=== PATIENT | female | born 1975 | race Caucasian/White ===

== ENCOUNTER 2023-12-11 09:51 | Emergency (ER) | payer OTHER, SELFPAY ==
[2023-12-11] VITALS (7 sets, daily range): BP systolic 00–143; BP diastolic 00–86; PULSE 0–92; RESP 14–20; TEMP -17.7–36.6; O2SAT 88–98; BMI 50.6
--- NOTE | ~2023-12-11 | XR_ITS ---
EXAMINATION: XR CHEST CLINICAL INFORMATION: Dizziness. Edema. COMPARISON: None available. TECHNIQUE: Frontal view of the chest was obtained. FINDINGS: Low lung volumes. Cephalization of the vasculature. Interstitial edema. No pleural effusion. Cardiac silhouette is unchanged. XR/XR chest 1V IMPRESSION: Pulmonary edema.
--- NOTE | 2023-12-11 09:56 | ECG_ITS ---
Test Reason : CHEST PAIN Blood Pressure : / mmHG Vent. Rate : 071 BPM Atrial Rate : 071 BPM P-R Int : 178 ms QRS Dur : 100 ms QT Int : 440 ms P-R-T Axes : 042 038 013 degrees QTc Int : 478 ms Normal sinus rhythm Septal infarct , age undetermined Nonspecific ST abnormality Abnormal ECG No previous ECGs available Referred By: Generic ED Physician Electronically Signed By:ETHAN FERNANDEZ MD
--- NOTE | 2023-12-11 10:12 | ED_ITS ---
HPI - SOB/Dyspnea General Chief Complaint: Dyspnea Stated Complaint: DIZZINESS EDEMA Time Seen by Provider: 12/11/23 09:59 Source: patient and EMS Mode of arrival: EMS History of Present Illness HPI Narrative: 48-year-old female with minimal history provided by the patient, patient was recently transferred to [facility] last night, transport says to [facility] but patient arrived here, EMS endorses that patient had an O2 sat of 88% and she has noted history of COPD but is not known be oxygen dependent. In addition, it was obtained by EMS a low blood pressure but there have been no corresponding blood pressures to further support the initial finding. Patient is minimally verbal in still endorses suicidal ideation. Related Data Allergies Allergy/AdvReac Type Severity Reaction Status Date / Time bee pollen [bee stings] Allergy Anaphylaxis Verified 12/11/23 10:13 Cephalosporins Allergy Rash Verified 12/11/23 10:13 chickpea Allergy Rash Verified 12/11/23 10:13 latex Allergy Hives Verified 12/11/23 10:13 Penicillins Allergy Hives Verified 12/11/23 10:13 sulfamethoxazole Allergy Rash Verified 12/11/23 10:13 [From Bactrim] trimethoprim [From Bactrim] Allergy Rash Verified 12/11/23 10:13 aspirin AdvReac Unknown Verified 12/11/23 10:13 Review of Systems 2 Review of Systems: Positives and negatives as stated in HPI PMFSH Past Medical History Source: nursing notes reviewed Social History Social History Smoked in Last 30 Days: Yes Use of substances other than those prescribed or required for medical reasons: No Do you have a plan to hurt others: No Plan Physical Exam 2 Vital Signs: Vital Signs: Last Vital Signs Temp 97.7 F 12/11/23 10:01 Pulse 70 12/11/23 12:05 Resp 20 12/11/23 12:05 BP 136/70 12/11/23 12:09 Pulse Ox 97 12/11/23 12:05 O2 Del Method Room Air 12/11/23 12:05 BMI result Body Mass Index 50.6 VITAL SIGNS: Reviewed. GENERAL: Well developed, well nourished, in no acute distress. HEAD: Normocephalic/atraumatic EYES: PERRLA, EOMI EARS: Ext canals without abnormality NOSE: Nares patent bilateral OROPHARYNX: no oral lesions noted, posterior pharynx clear NECK: Supple, no adenopathy LUNGS: Minimal bibasilar rales, otherwise no tachypnea or increased work of breathing and no crackles appreciated. SpO2<92> CARDIOVASCULAR: Regular rate and rhythm without noted murmurs, no JVD or lower extremity edema. ABDOMEN: Soft, non-tender, non-distended with bowel sounds. MUSCULOSKELETAL: No tenderness, deformities, or effusions noted on gross inspection. EXTREMITIES: No cyanosis, clubbing or edema. SKIN: Inspection of the skin reveals no rashes BILATERAL LOWER EXTREMITY: There is enlargement secondary to what appears to be venous stasis, I do not appreciate any pitting and there is no erythema/induration to suggest cellulitis. NEUROLOGIC: Alert and oriented x 4. Strength and sensation to light touch were grossly intact x 4, cranial nerves 2-12 are grossly intact. PSYCH: Depressed and flat affect Medications Administered Discontinued Medications Generic Name Dose Route Start Last Admin Trade Name Freq PRN Reason Stop Dose Admin Furosemide 40 mg 12/11/23 11:14 12/11/23 12:09 Furosemide 40 Mg/4 Ml Vial IVPUSH 12/11/23 11:15 40 mg ONCE ONE Administration Protocol Medical Decision Making Medical Decision Making MDM Narrative: 48-year-old female with history and clinical presentation, patient is currently being treated for her psychiatric conditions and was recently transferred to [facility] and has known COPD without evidence of difficulty breathing/increased work of breathing, oxygenation here in the emergency room has been well within the expected range for a patient with this condition, there is no evidence of increased sputum production/fever/chills to suggest a bronchitis or intrapulmonary infection. EKG does not demonstrate any ST elevations, will evaluate for possible fluid overload but otherwise patient will be transferred back to the facility. I reviewed all investigations and hematologic indices are negative for leukocytosis/anemia/thrombocytopenia. INR within normal limits. Chemistry indices do not demonstrate SONALI or significant electrolyte derangements and high sensitivity troponin is undetectable and BNP is 34, however chest x-ray and clinical exam consistent with CHF and patient received 40 mg of Lasix IV. She is otherwise not hypoxic throughout her stay here in this emergency room. Urinalysis negative for UTI or hematuria. Differential Diagnosis Differential Diagnoses: The differential diagnosis associated with the presentation includes Please see the discussion above Admission/Observation Consideration of admission/observation: Escalation of care including admission/observation considered Please see the discussion above Lab Data MDM Lab Attestation statement: I reviewed the patient's lab results. Please see the discussion above 12/11/23 12:00 12/11/23 12:00 Labs: Lab Results 12/11/23 Range/Units 12:00 WBC 5.6 (4.8-10.8) X10*3/uL RBC 4.59 (4.20-5.50) X10*6/uL Hgb 13.8 (12.0-16.0) g/dl Hct 41.6 (37.0-47.0) % MCV 90.6 (80.0-98.0) fL MCH 30.1 (27.0-33.0) pg MCHC 33.2 (31.0-35.0) g/dl RDW 12.8 (11.0-16.0) % Plt Count 193 (160-400) X10*3/uL MPV 9.5 (9.4-12.3) fL Immature Gran % (Auto) 0.4 (0.0-0.4) % Neut % (Auto) 69.7 (45-73) % Lymph % (Auto) 19.9 L (20-40) % [place] % (Auto) 5.9 (2-11) % Eos % (Auto) 3.7 (0-4) % Baso % (Auto) 0.4 (0-2) % Lymph # (Auto) 1.1 L (1.2-4.9) X10*3/uL [place] # (Auto) 0.3 (0.1-1.2) X10*3/uL Eos # (Auto) 0.2 (0.0-0.4) X10*3/uL Baso # (Auto) 0.0 (0.0-0.2) X10*3/uL Abs Immat Gran (auto) 0.02 (0.00-0.03) X10*3/uL Absolute Neuts (auto) 3.9 (2.0-8.3) x10*3/uL Absolute Nucleated RBC 0.000 (0.0-0.012) X10*3/uL Nucleated RBC % (auto) 0.0 (0.0-0.2) /100WBC PT 11.3 (11.1-13.3) SEC INR 0.9 (0.9-1.1) APTT 41.4 H (26.0-36.8) SEC Sodium 146 H (135-145) mmol/L Potassium 3.5 (3.3-5.1) mmol/L Chloride 104 (96-108) mmol/L Carbon Dioxide 35 H (22-29) mmol/L Anion Gap 11 L (12-20) BUN 5 L (9-16) mg/dL Creatinine 0.70 (0.5-1.4) mg/dL Estim Creat Clear Calc 158.1 Estimated GFR > 60 Random Glucose 103 (60-115) mg/dL Calcium 9.4 (8.4-10.2) mg/dL Troponin I High Sens < 2.7 (<3.5-17.0) ng/L B-Natriuretic Peptide 34 (<100) pg/mL Beta HCG, Quant 3 mIU/mL Urine Color Yellow Urine Appearance Clear Urine pH 7.5 (5.0-9.0) Ur Specific [place] <= 1.005 (1.005-1.025) Urine Protein Negative (Neg-Trace) mg/dL Urine Glucose (UA) Negative (Negative) mg/dL Urine Ketones Negative (Negative) mg/dL Urine Blood Negative (Negative) Urine Nitrite Negative (Negative) Ur Leukocyte Esterase Negative (Negative) Independent Interpretation I performed an independent interpretation of an: EKG Interpretation: Normal sinus rhythm, HR-71, no STEMI, OH/QRS/QTC is within normal range, QT is mildly prolonged and there is no EKG for comparison Radiology Impression Discussion of test interpretation with radiology: I have reviewed the radiologist's reading. Radiologist Impression: Please see the discussion above Chronic Conditions Patient?s care impacted by: Hypertension Critical Care Time Critical Care Time Critical Care Time: Yes Total Critical Care Time: 45 Attestation: I personally attest to this time spent taking care of the patient. Discharge Plan Discharge Clinical Impression: CHF (congestive heart failure) Instructions: Heart Failure (ED), Heart Healthy Diet (ED), Low-Sodium Diet (ED) Additional Instructions: 1. Resume all home medications as prescribed. 2. Follow-up with primary care doctor at earliest convenience for underlying medical conditions which need to be managed. Return to the ER for any worsening symptoms.
[2023-12-11 12:06] LABS: MANUAL DIFF FLAG NO
[2023-12-11 12:09] LABS: Basophils Percent Auto 0.4 % (0-2); Eosinophils Absolute Auto 0.2 X10*3/uL (0.0-0.4); Eosinophils Percent Auto 3.7 % (0-4); Hematocrit 41.6 % (37.0-47.0); Hemoglobin 13.8 g/dl (12.0-16.0); Imm Gran Abs Auto 0.02 X10*3/uL (0.00-0.03); Imm Gran Pct Auto 0.4 % (0.0-0.4); Lymphocytes Absolute Auto 1.1 X10*3/uL (1.2-4.9); Lymphocytes Percent Auto 19.9 % (20-40); Mean Corpuscular HGB Conc 33.2 g/dl (31.0-35.0); Mean Corpuscular Hemoglobin 30.1 pg (27.0-33.0); Mean Corpuscular Volume 90.6 fL (80.0-98.0); Mean Platelet Volume 9.5 fL (9.4-12.3); Monocytes Absolute Auto 0.3 X10*3/uL (0.1-1.2); Monocytes Percent Auto 5.9 % (2-11); Neutrophils Absolute Auto 3.9 x10*3/uL (2.0-8.3); Neutrophils Percent Auto 69.7 % (45-73); Platelet Count 193 X10*3/uL (160-400); Red Blood Count 4.59 X10*6/uL (4.20-5.50); Red Cell Distribution Width 12.8 % (11.0-16.0); White Blood Count 5.6 X10*3/uL (4.8-10.8)
[2023-12-11] MEDS: Furosemide 40 MG/4 ML VIAL IVPUSH (12:09)
[2023-12-11 12:14] LABS: Appearance Urine Clear; Color Urine Yellow; Glucose Urine UA Negative (Negative); Leukocyte Esterase Urine Negative (Negative); Nitrite Urine Negative (Negative); PH 7.5 (5.0-9.0); Specific Gravity - Urine <= 1.005 (1.005-1.025); Urine Blood Negative (Negative); Urine Ketones Negative (Negative); Urine Protein Negative (Neg-Trace)
[2023-12-11 12:26] LABS: INTERNATIONAL NORM RATIO 0.9 (0.9-1.1); Prothrombin Time 11.3 SEC (11.1-13.3)
[2023-12-11 12:28] LABS: Partial Thromboplastin Time 41.4 SEC (26.0-36.8)
[2023-12-11 12:33] LABS: Anion Gap 11 (12-20); Blood Urea Nitrogen 5 mg/dL (9-16); Calcium 9.4 mg/dL (8.4-10.2); Carbon Dioxide 35 mmol/L (22-29); Chloride 104 mmol/L (96-108); Creatinine Clr Calc Pharmacy 158.1; Estimated Glomerular Filt Rate > 60; Glucose Random 103 mg/dL (60-115); Potassium 3.5 mmol/L (3.3-5.1); Sodium 146 mmol/L (135-145)
[2023-12-11 12:36] LABS: B Type Natriuretic Peptide 34 pg/mL (<100)
[2023-12-11 12:37] LABS: Troponin-I High Sensitivity < 2.7 ng/L (<3.5-17.0)
[2023-12-11 12:38] LABS: HCG Quantitative 3 mIU/mL
--- NOTE | 2023-12-11 13:52 | MHC.EDTECH ---
Emptied 1,000ml of urine from suction canister @ 13:50.
--- NOTE | 2023-12-11 15:57 | PC.NURSE ---
iv removed on d/c
== END 2023-12-11 14:20 ==
LOC: HO.ED 13:45
PROVIDERS: Emergency Provider Student in an Organized Health Care Education/Training Program
DX: I11.0 Hypertensive heart disease with heart failure (principal); I50.1 Left ventricular failure, unspecified; R06.00 Dyspnea, unspecified; R06.02 Shortness of breath; R60.0 Localized edema; R42 Dizziness and giddiness; E66.9 Obesity, unspecified; Z68.43 Body mass index [BMI] 50.0-59.9, adult; Z79.899 Other long term (current) drug therapy
CPT/HCPCS: 36415; 71045; 80048; 81003; 83880; 84484; 84702; 85025; 85610; 85730; 93005; 96374; 99284; 99285; J1940

== ENCOUNTER → 2023-12-11 09:56 | Outpatient (BNV) | payer OTHER, SELFPAY | PROVIDERS: Emergency Provider Student in an Organized Health Care Education/Training Program; Visit Provider Internal Medicine Cardiovascular Disease | DX: R07.9 Chest pain, unspecified (principal); I21.3 ST elevation (STEMI) myocardial infarction of unspecified site | CPT/HCPCS: 93010 ==